=== PATIENT | male | born 1995 | race Caucasian/White ===

== ENCOUNTER 2017-12-27 11:47 | Emergency (ER) | payer OTHER ==
[2017-12-27] MEDS ORDERED: Adacel (T-DAP) 0.5 ML VIAL ONE (13:01)
[2017-12-27] MEDS ORDERED: Lidocaine 1% PF 5 ML VIAL ONE (13:02)
[2017-12-27] MEDS ORDERED: Bacitracin Zinc 1 Packet ONE (13:27)
== END 2017-12-27 13:32 | disposition home or self-care (01) ==
LOC: ERS 11:47
DX: S61.211A Laceration without foreign body of left index finger without damage to nail, initial encounter (principal); I10 Essential (primary) hypertension; Z23 Encounter for immunization; W26.0XXA Contact with knife, initial encounter
CPT/HCPCS: 12002; 90471; 90715; J2001

== ENCOUNTER 2018-01-04 10:53 | Emergency (ER) | payer OTHER | END 2018-01-04 11:15 | disposition home or self-care (01) | LOC: ERS 10:53 | DX: S61.211D Laceration without foreign body of left index finger without damage to nail, subsequent encounter (principal); I10 Essential (primary) hypertension; Z79.899 Other long term (current) drug therapy ==